=== PATIENT | male | born 1995 | race Caucasian/White ===

== ENCOUNTER 2023-04-04 01:55 | Emergency (ER) | payer OTHER ==
[~2023-04-04] VITALS: Ht 185.4 cm; Wt 109.1 kg
[2023-04-04 02:18] VITALS: TEMP 98.8
[2023-04-04 03:03] LABS: BASO % 0.3 % (0.0-2.0); EOS # 0.1 K/mm3 (0.0-0.7); EOS % 0.7 % (0.0-4.0); GRAN % 69.2 % (42.2-75.2); HEMATOCRIT 43.8 % (42.0-52.0); HEMOGLOBIN 14.9 g/dl (13.5-18.0); LYMPH # 2.3 K/mm3 (1.2-3.4); MEAN CELL VOLUME 94 fl (80.0-100.0); MEAN CORPUSCULAR HEMOGLOBIN 32 pg (27-31); MEAN CORPUSCULAR HGB CONC 34 g/dl (33.0-37.0); MEAN PLATELET VOLUME 8.6 fl (7.4-10.4); MONO # 1.1 K/mm3 (0.1-0.6); MONO % 9.4 % (1.7-9.3); PLATELET COUNT 200 K/mm3 (130-400); RED BLOOD COUNT 4.65 M/mm3 (4.20-5.60); REDCELL DISTRIBUTION WIDTH-CV 13.1 % (11.5-14.5)
[2023-04-04 03:20] LABS: ALBUMIN 4.2 gm/dL (3.5-5.0); BILIRUBIN,TOTAL 0.3 mg/dL (0.2-1.2); CALCIUM 9.6 mg/dL (8.4-10.2); CREATININE, serum 1.03 mg/dL (0.72-1.25); TOTAL PROTEIN 8.3 gm/dL (6.2-8.1)
[2023-04-04 03:24] VITALS: BP 130/82; PULSE 98
== END 2023-04-04 03:30 | disposition short-term general hospital (02) ==
LOC: COL.ER 01:55
PROVIDERS: Emergency Medicine
DX: N50.812 Left testicular pain (principal)